=== PATIENT | female | born 1990 | race Caucasian/White ===

== ENCOUNTER 2017-07-12 23:35 | Emergency (ER) | payer OTHER ==
[~2017-07-12] VITALS: Ht 154.9 cm; Wt 53.4 kg
[2017-07-13 00:52] LABS: HEMATOCRIT 35.5 % (36.0-46.0); MCH 29.7 PG (29.0-34.0); MCHC 35.5 G/DL (30.0-36.0); MCV 83.7 FL (83-99); MEAN PLAT.VOLUME 10.3 uM^3 (9.5-12.4); PLATELET COUNT 254 K/uL (156-360); RBC DIS.WIDTH-CV 11.9 % (11.8-14.6); RBC DIS.WIDTH-SD 36.1 % (39-53); RED BLOOD COUNT 4.24 M/uL (3.80-5.20); WHITE BLOOD COUNT 8.1 K/uL (4.1-10.2)
[2017-07-13 01:00] LABS: CHLORIDE 105 mEq/L (99-109); POTASSIUM 3.8 mEq/L (3.7-5.4); SODIUM 137 mEq/L (136-147)
[2017-07-13 01:02] LABS: GLUCOSE 87 mg/dL (70-99)
[2017-07-13 01:03] LABS: ANION GAP 9 MEQ/L (2-14)
[2017-07-13 01:04] LABS: TOTAL BILIRUBIN 0.7 mg/dL (0.0-1.0)
[2017-07-13 01:06] LABS: ALKALINE PHOSPHATASE 69 IU/L (3-129); GFR ESTIMATE (CALCULATED) > 59 mL/min/
[2017-07-13 01:07] LABS: UREA NITROGEN (BUN) 9 mg/dL (9-23)
[2017-07-13 01:34] LABS: QUANTITATIVE HCG 76192.8 MIU/ML
[2017-07-13] MEDS ORDERED: PHENERGAN25 MG PR (02:00)
[2017-07-13 02:14] VITALS: BP 111/72
== END 2017-07-13 02:23 | disposition home or self-care (01) ==
LOC: EME 23:35
DX: O21.9 Vomiting of pregnancy, unspecified (principal); R51 Headache; Z3A.10 10 weeks gestation of pregnancy
CPT/HCPCS: 80053; 84702; 85027; 99281; 99285; J7030; Q0169

== ENCOUNTER 2017-07-21 04:33 | Emergency (ER) | payer OTHER ==
[~2017-07-21] VITALS: Ht 154.9 cm; Wt 53.3 kg
[~2017-07-21 04:33] MED LIST: PHENERGAN25 MG PR
[2017-07-21 05:22] LABS: HEMATOCRIT 37.6 % (36.0-46.0); MCH 29.8 PG (29.0-34.0); MCHC 35.6 G/DL (30.0-36.0); MCV 83.7 FL (83-99); MEAN PLAT.VOLUME 10.1 uM^3 (9.5-12.4); PLATELET COUNT 255 K/uL (156-360); RBC DIS.WIDTH-CV 11.9 % (11.8-14.6); RBC DIS.WIDTH-SD 36.2 % (39-53); RED BLOOD COUNT 4.49 M/uL (3.80-5.20); WHITE BLOOD COUNT 7.5 K/uL (4.1-10.2)
[2017-07-21 05:25] LABS: ADD MIUA? YES; BILIRUBIN NEGATIVE; BLOOD NEGATIVE; GLUCOSE (STRIP) NEGATIVE; KETONES 80; LEUKOCYTES NEGATIVE; NITRITE NEGATIVE; PROTEIN (STRIP) 100; SPECIFIC GRAVITY 1.033 (1.000-1.030)
[2017-07-21 05:27] LABS: COLOR DK YELLOW ((YELLOW))
[2017-07-21 05:39] LABS: CHLORIDE 101 mEq/L (99-109); POTASSIUM 3.3 mEq/L (3.7-5.4); SODIUM 136 mEq/L (136-147)
[2017-07-21 05:41] LABS: GLUCOSE 82 mg/dL (70-99)
[2017-07-21 05:43] LABS: ANION GAP 11 MEQ/L (2-14)
[2017-07-21 05:45] LABS: ALKALINE PHOSPHATASE 74 IU/L (3-129); EPITHELIAL CELLS 1+ /HPF; GFR ESTIMATE (CALCULATED) > 59 mL/min/; MUCUS 3+ /LPF; RED BLOOD CELLS 0-5 /HPF (0-5); WHITE BLOOD CELLS 0-5 /HPF (0-5)
[2017-07-21 05:46] LABS: AMORPHOUS URATES CRYSTALS 1+; BACTERIA 2+ /HPF; CASTS NONE SEEN /LPF; CRYSTALS PRESENT; UCUL ADDED? YES; UREA NITROGEN (BUN) 11 mg/dL (9-23)
[2017-07-21 05:48] LABS: LIPASE 6 U/L (1.0-51.0)
[2017-07-21] MEDS ORDERED: ZOFRAN ODT4 MG PO (06:08)
[2017-07-21 06:31] VITALS: BP 119/74
== END 2017-07-21 06:32 | disposition home or self-care (01) ==
LOC: EME 04:33
PROVIDERS: Physician Assistant
DX: O21.1 Hyperemesis gravidarum with metabolic disturbance (principal); Z3A.11 11 weeks gestation of pregnancy; O99.281 Endocrine, nutritional and metabolic diseases complicating pregnancy, first trimester; E05.00 Thyrotoxicosis with diffuse goiter without thyrotoxic crisis or storm
CPT/HCPCS: 80053; 81003; 83690; 85027; 87086; 99281; 99285; J2405; J7030

== ENCOUNTER 2017-07-29 08:38 | Emergency (ER) | payer OTHER ==
[~2017-07-29] VITALS: Ht 154.9 cm; Wt 55.0 kg
[~2017-07-29 08:38] MED LIST changes: +ZOFRAN ODT4 MG PO
[2017-07-29] MEDS ORDERED: ONDANSETRON ODT4 MG PO (08:58)
[2017-07-29] MEDS ORDERED: INDERAL20 MG PO (08:59)
[2017-07-29] MEDS ORDERED: METOPROLOL SUCC25 MG PO (09:00)
[2017-07-29 09:15] LABS: EOSINOPHIL (%) 2.7 % (0-5); EOSINOPHIL COUNT 0.2 K/uL (0-0.3); HEMATOCRIT 35.1 % (36.0-46.0); IMMATURE GRANULOCYTE (%) 0.3 % (0.0-0.7); INSTRUMENT ABS NEUTROPHIL CT 3.4 K/uL; LYMPHOCYTE COUNT 2.5 K/uL (1.0-2.8); MCH 29.2 PG (29.0-34.0); MCHC 34.5 G/DL (30.0-36.0); MCV 84.8 FL (83-99); MEAN PLAT.VOLUME 9.9 uM^3 (9.5-12.4); MONOCYTE (%) 10.3 % (3-12); MONOCYTE COUNT 0.7 K/uL (0-0.8); NEUTROPHIL (%) 50.2 % (45-76); NEUTROPHIL COUNT 3.4 K/uL (1.8-6.4); PLATELET COUNT 225 K/uL (156-360); RBC DIS.WIDTH-CV 11.9 % (11.8-14.6); RBC DIS.WIDTH-SD 36.7 % (39-53); RED BLOOD COUNT 4.14 M/uL (3.80-5.20); WHITE BLOOD COUNT 6.7 K/uL (4.1-10.2)
[2017-07-29 09:26] LABS: CHLORIDE 108 mEq/L (99-109); POTASSIUM 3.5 mEq/L (3.7-5.4); SODIUM 137 mEq/L (136-147)
[2017-07-29 09:27] LABS: GLUCOSE 93 mg/dL (70-99)
[2017-07-29 09:29] LABS: ANION GAP 8 MEQ/L (2-14)
[2017-07-29 09:31] LABS: GFR ESTIMATE (CALCULATED) > 59 mL/min/
[2017-07-29 09:32] LABS: UREA NITROGEN (BUN) 7 mg/dL (9-23)
[2017-07-29 09:52] LABS: ADD MIUA? YES; BILIRUBIN NEGATIVE; BLOOD NEGATIVE; COLOR YELLOW ((YELLOW)); GLUCOSE (STRIP) NEGATIVE; KETONES NEGATIVE; LEUKOCYTES NEGATIVE; NITRITE NEGATIVE; PROTEIN (STRIP) NEGATIVE; SPECIFIC GRAVITY 1.021 (1.000-1.030); UROBILINOGEN 0.2 MG/DL (0.2-1.0)
[2017-07-29 09:55] LABS: BACTERIA RARE /HPF; EPITHELIAL CELLS 1+ /HPF; MUCUS 1+ /LPF; RED BLOOD CELLS 0-5 /HPF (0-5); UCUL ADDED? NO; WHITE BLOOD CELLS 0-5 /HPF (0-5)
[2017-07-29 09:59] LABS: QUANTITATIVE HCG 70628.4 MIU/ML
[2017-07-29 11:02] VITALS: BP 97/45
== END 2017-07-29 11:14 | disposition home or self-care (01) ==
LOC: EME 08:38
PROVIDERS: Emergency Medicine
DX: R11.2 Nausea with vomiting, unspecified (principal)
CPT/HCPCS: 80048; 81003; 84702; 85025; 99281; 99285; J1200; J2765; J7030

== ENCOUNTER 2017-08-06 10:46 | Emergency (ER) | payer OTHER ==
[~2017-08-06] VITALS: Ht 157.5 cm; Wt 54.5 kg
[~2017-08-06 10:46] MED LIST changes: +INDERAL20 MG PO; +METOPROLOL SUCC25 MG PO; +ONDANSETRON ODT4 MG PO
[2017-08-06 11:11] LABS: HEMATOCRIT 37.4 % (36.0-46.0); MCH 29.6 PG (29.0-34.0); MCHC 35.3 G/DL (30.0-36.0); MCV 83.9 FL (83-99); PLATELET COUNT 245 K/uL (156-360); RBC DIS.WIDTH-CV 11.9 % (11.8-14.6); RBC DIS.WIDTH-SD 36.3 % (39-53); RED BLOOD COUNT 4.46 M/uL (3.80-5.20); WHITE BLOOD COUNT 6.5 K/uL (4.1-10.2)
[2017-08-06 11:18] LABS: CHLORIDE 108 mEq/L (99-109); SODIUM 137 mEq/L (136-147)
[2017-08-06 11:21] LABS: GLUCOSE 98 mg/dL (70-99)
[2017-08-06 11:22] LABS: ANION GAP 9 MEQ/L (2-14)
[2017-08-06 11:23] LABS: TOTAL BILIRUBIN 0.8 mg/dL (0.0-1.0)
[2017-08-06 11:24] LABS: ALKALINE PHOSPHATASE 70 IU/L (3-129); GFR ESTIMATE (CALCULATED) > 59 mL/min/
[2017-08-06 11:25] LABS: UREA NITROGEN (BUN) 5 mg/dL (9-23)
[2017-08-06 11:50] LABS: QUANTITATIVE HCG 43731.7 MIU/ML
[2017-08-06 12:03] LABS: ADD MIUA? YES; BILIRUBIN NEGATIVE; BLOOD NEGATIVE; COLOR YELLOW ((YELLOW)); GLUCOSE (STRIP) NEGATIVE; KETONES NEGATIVE; LEUKOCYTES SMALL; NITRITE NEGATIVE; PROTEIN (STRIP) NEGATIVE; SPECIFIC GRAVITY 1.016 (1.000-1.030); UROBILINOGEN 0.2 MG/DL (0.2-1.0)
[2017-08-06 12:07] LABS: BACTERIA RARE /HPF; EPITHELIAL CELLS 1+ /HPF; MUCUS NONE SEEN /LPF; RED BLOOD CELLS 0-5 /HPF (0-5); UCUL ADDED? NO; WHITE BLOOD CELLS 0-5 /HPF (0-5)
[2017-08-06 13:16] VITALS: BP 109/61
== END 2017-08-06 13:16 | disposition home or self-care (01) ==
LOC: EME 10:46
DX: O26.892 Other specified pregnancy related conditions, second trimester (principal); R10.31 Right lower quadrant pain; Z3A.15 15 weeks gestation of pregnancy
CPT/HCPCS: 80053; 81003; 84702; 85027; 99281; 99283

== ENCOUNTER 2017-10-14 08:48 | Emergency (ER) | payer OTHER ==
[~2017-10-14] VITALS: Ht 154.9 cm; Wt 57.1 kg
[2017-10-14 11:42] VITALS: BP 110/62
== END 2017-10-14 11:43 | disposition home or self-care (01) ==
LOC: EME 08:48
DX: O99.89 Other specified diseases and conditions complicating pregnancy, childbirth and the puerperium (principal); T78.40XA Allergy, unspecified, initial encounter; X58.XXXA Exposure to other specified factors, initial encounter; R21 Rash and other nonspecific skin eruption; Z3A.25 25 weeks gestation of pregnancy
CPT/HCPCS: 99281; 99284; J1200; J2930

== ENCOUNTER 2017-11-18 15:55 | Outpatient (CLI) | payer OTHER ==
[~2017-11-18] VITALS: Ht 154.9 cm; Wt 63.6 kg
[2017-11-18 16:11] VITALS: BP 133/85
[2017-11-18] MEDS ORDERED: EXPECTA PRENAT1 EACH PO (16:25)
[2017-11-18] MEDS ORDERED: METHIMAZOLE10 MG PO (16:27)
[2017-11-18 16:28] VITALS: BP 121/72
[2017-11-18 16:44] VITALS: BP 119/72
[2017-11-18 16:59] VITALS: BP 126/77
[2017-11-18 17:04] LABS: BASOPHIL (%) 0.4 % (0-1); EOSINOPHIL (%) 0.6 % (0-5); EOSINOPHIL COUNT 0.1 K/uL (0-0.3); HEMATOCRIT 35.4 % (36.0-46.0); HEMOGLOBIN 12.7 G/DL (11.9-15.5); IMMATURE GRANULOCYTE (%) 0.8 % (0.0-0.7); LYMPHOCYTE (%) 13.6 % (15-42); LYMPHOCYTE COUNT 1.3 K/uL (1.0-2.8); MCH 31.4 PG (29.0-34.0); MCHC 35.9 G/DL (30.0-36.0); MCV 87.6 FL (83-99); MONOCYTE (%) 3.2 % (3-12); MONOCYTE COUNT 0.3 K/uL (0-0.8); NEUTROPHIL (%) 81.4 % (45-76); NEUTROPHIL COUNT 7.9 K/uL (1.8-6.4); PLATELET COUNT 269 K/uL (156-360); RBC DIS.WIDTH-CV 12.4 % (11.8-14.6); RBC DIS.WIDTH-SD 39.6 % (39-53); RED BLOOD COUNT 4.04 M/uL (3.80-5.20); WHITE BLOOD COUNT 9.7 K/uL (4.1-10.2)
[2017-11-18 17:15] LABS: ALBUMIN 3.4 G/DL (3.2-4.8); CHLORIDE 106 MEQ/L (99-109); POTASSIUM 3.6 MEQ/L (3.7-5.4); SODIUM 137 MEQ/L (136-147); TOTAL BILIRUBIN 0.2 MG/DL (0.0-1.0)
[2017-11-18 17:21] LABS: ALKALINE PHOSPHATASE 101 IU/L (3-129); ALT (GPT) 10 IU/L (3-49); AST (GOT) 12 IU/L (2-34); CREATININE 0.4 MG/DL (0.6-1.3); GFR ESTIMATE (CALCULATED) > 59 mL/min/; GLUCOSE 143 mg/dL (70-99); TOTAL PROTEIN 6.4 G/DL (6.4-8.3); UREA NITROGEN (BUN) 13 mg/dL (9-23)
[2017-11-18 18:06] VITALS: BP 120/71
[2017-11-18 18:08] LABS: UR CREATININE CONCENTRATION 98.4 MG/DL
== END 2017-11-18 18:30 | disposition home or self-care (01) ==
LOC: LDRP-OP 15:55 → 2WEST 15:56 → LDRP-OP 04-06 10:44
PROVIDERS: Obstetrics & Gynecology
DX: O36.5930 Maternal care for other known or suspected poor fetal growth, third trimester, not applicable or unspecified (principal); O99.283 Endocrine, nutritional and metabolic diseases complicating pregnancy, third trimester; E05.90 Thyrotoxicosis, unspecified without thyrotoxic crisis or storm; Z3A.28 28 weeks gestation of pregnancy; O36.8931 Maternal care for other specified fetal problems, third trimester, fetus 1; Z87.891 Personal history of nicotine dependence
CPT/HCPCS: 59025; 80053; 82570; 84156; 85025; G0378

== ENCOUNTER 2017-12-12 09:11 | Outpatient (CLI) | payer OTHER ==
[~2017-12-12] VITALS: Ht 154.9 cm; Wt 70.5 kg
[2017-12-12] VITALS (8 sets, daily range): BP systolic 113–146; BP diastolic 69–87
[~2017-12-12 09:11] MED LIST changes: +EXPECTA PRENAT1 EACH PO; +METHIMAZOLE10 MG PO
[2017-12-12 18:27] LABS: CHLORIDE 104 MEQ/L (99-109); POTASSIUM 3.4 MEQ/L (3.7-5.4); SODIUM 135 MEQ/L (136-147); TOTAL BILIRUBIN 0.4 MG/DL (0.0-1.0)
[2017-12-12 18:33] LABS: ALKALINE PHOSPHATASE 109 IU/L (3-129); ALT (GPT) 27 IU/L (3-49); AST (GOT) 22 IU/L (2-34); CREATININE 0.4 MG/DL (0.6-1.3); GFR ESTIMATE (CALCULATED) > 59 mL/min/; GLUCOSE 133 mg/dL (70-99); UREA NITROGEN (BUN) 9 mg/dL (9-23)
[2017-12-12 19:16] LABS: UR CREATININE CONCENTRATION 107.5 MG/DL
[2017-12-13 02:20] VITALS: BP 134/83
[2017-12-13 07:01] VITALS: BP 133/82
[2017-12-13] MEDS ORDERED: INDERAL20 MG PO (10:51)
== END 2017-12-13 11:03 | disposition home or self-care (01) ==
LOC: LDRP-OP 09:11 → 2WEST 09:12 → LDRP-OP 03-04 18:39
PROVIDERS: Obstetrics & Gynecology Obstetrics
DX: O36.8130 Decreased fetal movements, third trimester, not applicable or unspecified (principal); O99.283 Endocrine, nutritional and metabolic diseases complicating pregnancy, third trimester; E05.00 Thyrotoxicosis with diffuse goiter without thyrotoxic crisis or storm; O99.343 Other mental disorders complicating pregnancy, third trimester; F41.9 Anxiety disorder, unspecified; O26.893 Other specified pregnancy related conditions, third trimester; R11.2 Nausea with vomiting, unspecified; Z3A.32 32 weeks gestation of pregnancy
CPT/HCPCS: 59025; 76818; 80053; 82570; 84156; 90686; G0378; J7120

== ENCOUNTER 2017-12-15 09:44 | Inpatient (IN) | payer OTHER ==
[~2017-12-15] VITALS: Ht 154.9 cm; Wt 68.9 kg
[2017-12-15] VITALS (8 sets, daily range): BP systolic 114–138; BP diastolic 67–92
[2017-12-15] MEDS ORDERED: TYLENOL EXTRA500 MG PO (10:09)
[2017-12-15 10:40] LABS: PTT 34.5 SEC (25-37)
[2017-12-15 10:47] LABS: BASOPHIL (%) 0.3 % (0-1); EOSINOPHIL (%) 1.5 % (0-5); EOSINOPHIL COUNT 0.1 K/uL (0-0.3); HEMATOCRIT 37.3 % (36.0-46.0); HEMOGLOBIN 13.5 G/DL (11.9-15.5); IMMATURE GRANULOCYTE (%) 0.9 % (0.0-0.7); LYMPHOCYTE (%) 20.2 % (15-42); LYMPHOCYTE COUNT 1.9 K/uL (1.0-2.8); MCH 32.1 PG (29.0-34.0); MCHC 36.2 G/DL (30.0-36.0); MCV 88.6 FL (83-99); MONOCYTE (%) 9.9 % (3-12); NEUTROPHIL (%) 67.2 % (45-76); NEUTROPHIL COUNT 6.4 K/uL (1.8-6.4); RBC DIS.WIDTH-CV 12.4 % (11.8-14.6); RBC DIS.WIDTH-SD 40.5 % (39-53); RED BLOOD COUNT 4.21 M/uL (3.80-5.20); WHITE BLOOD COUNT 9.6 K/uL (4.1-10.2)
[2017-12-15 11:02] LABS: ALBUMIN 3.2 G/DL (3.2-4.8); CHLORIDE 105 MEQ/L (99-109); CREATININE 0.4 MG/DL (0.6-1.3); GFR ESTIMATE (CALCULATED) > 59 mL/min/; LACTATE DEHYDROGENASE 244 IU/L (20-246); POTASSIUM 3.4 MEQ/L (3.7-5.4); SODIUM 136 MEQ/L (136-147); TOTAL PROTEIN 5.8 G/DL (6.4-8.3); UREA NITROGEN (BUN) 7 mg/dL (9-23); URIC ACID 3.8 mg/dL (3.1-9.2)
[2017-12-15 11:06] LABS: ALKALINE PHOSPHATASE 138 IU/L (3-129); ALT (GPT) 93 IU/L (3-49); AST (GOT) 74 IU/L (2-34); GLUCOSE 97 mg/dL (70-99); TOTAL BILIRUBIN 0.8 MG/DL (0.0-1.0)
[2017-12-15 11:12] LABS: FIBRINOGEN 650 mg/dL (150-450)
[2017-12-15 11:18] LABS: PLAT.SUFFICIENCY DECREASED; PLATELET COUNT 124 K/uL (156-360)
[2017-12-15 12:30] LABS: UR CREATININE CONCENTRATION 102.7 MG/DL
[2017-12-15] MEDS ORDERED: IBUPROFEN800 MG PO (14:07)
[2017-12-15] MEDS ORDERED: ENDOCET 5-3251 EACH PO (14:07)
[2017-12-15 20:33] LABS: BASOPHIL (%) 0.1 % (0-1); EOSINOPHIL (%) 0.1 % (0-5); HEMATOCRIT 35.7 % (36.0-46.0); LYMPHOCYTE (%) 8.8 % (15-42); LYMPHOCYTE COUNT 1.1 K/uL (1.0-2.8); MCH 31.7 PG (29.0-34.0); MCHC 36.4 G/DL (30.0-36.0); MCV 87.1 FL (83-99); MONOCYTE (%) 2.1 % (3-12); MONOCYTE COUNT 0.3 K/uL (0-0.8); NEUTROPHIL (%) 87.9 % (45-76); NEUTROPHIL COUNT 10.5 K/uL (1.8-6.4); PLATELET COUNT 110 K/uL (156-360); RBC DIS.WIDTH-CV 12.2 % (11.8-14.6); RBC DIS.WIDTH-SD 38.9 % (39-53); WHITE BLOOD COUNT 11.9 K/uL (4.1-10.2)
[2017-12-15 20:44] LABS: ALBUMIN 3.1 G/DL (3.2-4.8); CHLORIDE 106 MEQ/L (99-109); SODIUM 135 MEQ/L (136-147)
[2017-12-15 20:46] LABS: POTASSIUM 4.1 MEQ/L (3.7-5.4); TOTAL BILIRUBIN 0.5 MG/DL (0.0-1.0)
[2017-12-15 20:50] LABS: ALKALINE PHOSPHATASE 134 IU/L (3-129); ALT (GPT) 98 IU/L (3-49); AST (GOT) 63 IU/L (2-34); CREATININE 0.4 MG/DL (0.6-1.3); GFR ESTIMATE (CALCULATED) > 59 mL/min/; UREA NITROGEN (BUN) 6 mg/dL (9-23)
[2017-12-15 20:55] LABS: GLUCOSE 189 mg/dL (70-99)
[2017-12-16 05:50] LABS: BASOPHIL (%) 0.1 % (0-1); EOSINOPHIL (%) 0.1 % (0-5); HEMOGLOBIN 12.5 G/DL (11.9-15.5); IMMATURE GRANULOCYTE (%) 1.1 % (0.0-0.7); LYMPHOCYTE COUNT 1.7 K/uL (1.0-2.8); MCH 32.6 PG (29.0-34.0); MCHC 36.8 G/DL (30.0-36.0); MCV 88.8 FL (83-99); MONOCYTE (%) 5.9 % (3-12); MONOCYTE COUNT 0.7 K/uL (0-0.8); NEUTROPHIL (%) 78.8 % (45-76); NEUTROPHIL COUNT 9.7 K/uL (1.8-6.4); PLATELET COUNT 113 K/uL (156-360); RBC DIS.WIDTH-CV 12.5 % (11.8-14.6); RBC DIS.WIDTH-SD 40.4 % (39-53); RED BLOOD COUNT 3.83 M/uL (3.80-5.20); WHITE BLOOD COUNT 12.4 K/uL (4.1-10.2)
[2017-12-16 06:09] LABS: ALBUMIN 2.9 G/DL (3.2-4.8); CHLORIDE 106 MEQ/L (99-109); POTASSIUM 4.4 MEQ/L (3.7-5.4); SODIUM 136 MEQ/L (136-147); TOTAL BILIRUBIN 0.6 MG/DL (0.0-1.0)
[2017-12-16 06:15] LABS: ALKALINE PHOSPHATASE 127 IU/L (3-129); ALT (GPT) 81 IU/L (3-49); AST (GOT) 45 IU/L (2-34); CREATININE 0.3 MG/DL (0.6-1.3); GFR ESTIMATE (CALCULATED) > 59 mL/min/; TOTAL PROTEIN 5.4 G/DL (6.4-8.3); UREA NITROGEN (BUN) 6 mg/dL (9-23)
[2017-12-16 06:16] LABS: GLUCOSE 109 mg/dL (70-99)
[2017-12-16 07:05] VITALS: BP 120/74
[2017-12-16 11:07] VITALS: BP 109/72
[2017-12-16 15:27] VITALS: BP 103/67
[2017-12-16 19:45] VITALS: BP 117/73
[2017-12-16 23:38] VITALS: BP 129/72
[2017-12-17 03:20] VITALS: BP 95/54
[2017-12-17 05:57] LABS: HEMATOCRIT 33.3 % (36.0-46.0); HEMOGLOBIN 12.1 G/DL (11.9-15.5); MCH 32.8 PG (29.0-34.0); MCHC 36.3 G/DL (30.0-36.0); MCV 90.2 FL (83-99); NRBC (%) 0.3 /100 WBC (0-0); RBC DIS.WIDTH-SD 42.6 % (39-53); RED BLOOD COUNT 3.69 M/uL (3.80-5.20); WHITE BLOOD COUNT 14.7 K/uL (4.1-10.2)
[2017-12-17 06:13] LABS: PLATELET COUNT 164 K/uL (156-360)
[2017-12-17 06:27] LABS: ALBUMIN 2.9 G/DL (3.2-4.8); ALKALINE PHOSPHATASE 111 IU/L (3-129); ALT (GPT) 57 IU/L (3-49); CHLORIDE 107 MEQ/L (99-109); CREATININE 0.5 MG/DL (0.6-1.3); GFR ESTIMATE (CALCULATED) > 59 mL/min/; POTASSIUM 4.2 MEQ/L (3.7-5.4); SODIUM 137 MEQ/L (136-147); TOTAL PROTEIN 5.5 G/DL (6.4-8.3); UREA NITROGEN (BUN) 10 mg/dL (9-23)
[2017-12-17 06:28] LABS: AST (GOT) 22 IU/L (2-34); GLUCOSE 79 mg/dL (70-99); TOTAL BILIRUBIN 0.3 MG/DL (0.0-1.0)
[2017-12-17 07:23] VITALS: BP 120/76
[2017-12-17] MEDS ORDERED: ZOLOFT25 MG PO (10:52)
== END 2017-12-17 11:36 | disposition home or self-care (01) | DRG 765 ==
LOC: LDRP-OP 09:44 → 2WEST 09:45 → LDRP-OP 03-04 02:53
PROVIDERS: Obstetrics & Gynecology; Obstetrics & Gynecology Gynecology
PROC: 10D00Z1 Extraction of Products of Conception, Low, Open Approach (ICD-10-PCS; principal; 2017-12-15)
DX: O14.24 HELLP syndrome, complicating childbirth (principal); O36.5930 Maternal care for other known or suspected poor fetal growth, third trimester, not applicable or unspecified; O32.2XX0 Maternal care for transverse and oblique lie, not applicable or unspecified; Z37.0 Single live birth; Z3A.32 32 weeks gestation of pregnancy; O69.81X0 Labor and delivery complicated by cord around neck, without compression, not applicable or unspecified
CPT/HCPCS: 59025; 76818; 80053; 82570; 83615; 84156; 84550; 85025; 85025 91; 85027; 85384; 85610; 85730; 88307; 90686; G0378; J0690; J0702; J2274; J3475; J7120